=== PATIENT | male | born 1965 | race Caucasian/White ===

== ENCOUNTER 2017-07-28 20:59 | Emergency (ER) | payer OTHER ==
[~2017-07-28] VITALS: Ht 193 cm; Wt 158.4 kg
[2017-07-28 21:27] LABS: HEMATOCRIT 46.4 % (38.0-50.0); MCH 29.1 PG (29.0-34.0); MCHC 34.5 G/DL (30.0-36.0); MCV 84.5 FL (86-99); PLATELET COUNT 298 K/uL (156-360); RBC DIS.WIDTH-CV 11.9 % (11.8-14.6); RBC DIS.WIDTH-SD 36.4 % (39-53); RED BLOOD COUNT 5.49 M/uL (4.00-5.50); WHITE BLOOD COUNT 16.5 K/uL (4.1-10.2)
[2017-07-28 21:35] LABS: ALBUMIN 4.4 g/dL (3.2-4.8); CHLORIDE 102 mEq/L (99-109); POTASSIUM 4.3 mEq/L (3.7-5.4); SODIUM 138 mEq/L (136-147)
[2017-07-28 21:37] LABS: GLUCOSE 199 mg/dL (70-99)
[2017-07-28 21:38] LABS: TOTAL PROTEIN 7.5 g/dL (6.4-8.3)
[2017-07-28 21:41] LABS: ALKALINE PHOSPHATASE 113 IU/L (3-129); CREATININE 1.1 mg/dL (0.6-1.3)
[2017-07-28 21:42] LABS: UREA NITROGEN (BUN) 18 mg/dL (9-23)
[2017-07-28 21:43] LABS: AST (GOT) 46 IU/L (2-34)
[2017-07-28 21:44] LABS: ALT (GPT) 48 IU/L (3-49)
[2017-07-28 21:52] LABS: GFR ESTIMATE (CALCULATED) > 59 mL/min/ (58.99-99999)
[2017-07-28 22:39] LABS: INTER. NORMALIZED RATIO 1.1
[2017-07-28 22:42] LABS: PTT 28.8 SEC (25-37)
[2017-07-28 22:43] LABS: MAGNESIUM 1.7 mg/dL (1.3-2.7)
[2017-07-28 22:48] LABS: PHOSPHORUS 3.2 mg/dL (2.5-4.9)
[2017-07-28 22:51] LABS: LIPASE 13 U/L (1.0-51.0)
[2017-07-28 22:57] LABS: TROP-I INTERPRETATION NEGATIVE; TROPONIN-I < 0.01 ng/mL (0.0-0.30)
[2017-07-28 23:59] LABS: CREATINE KINASE 77 IU/L (1-294)
[2017-07-29 00:50] LABS: APPEARANCE CLEAR ((CLEAR)); BILIRUBIN NEGATIVE; BLOOD SMALL; COLOR YELLOW ((YELLOW)); GLUCOSE (STRIP) NEGATIVE; KETONES NEGATIVE; LEUKOCYTES NEGATIVE; NITRITE NEGATIVE; PROTEIN (STRIP) NEGATIVE; UROBILINOGEN 0.2 MG/DL (0.2-1.0)
[2017-07-29 00:54] LABS: SPECIFIC GRAVITY > 1.060 (1.000-1.030)
[2017-07-29 00:55] LABS: BACTERIA NONE SEEN /HPF; EPITHELIAL CELLS NONE SEEN /HPF; MUCUS TRACE /LPF; RED BLOOD CELLS 0-5 /HPF (0-5); UCUL ADDED? NO; WHITE BLOOD CELLS NONE SEEN /HPF (0-5)
[2017-07-29] MEDS ORDERED: GLUCOPHAGE500 MG PO (01:07)
[2017-07-29] MEDS ORDERED: OMEPRAZOLE40 M1 PO (01:07)
[2017-07-29] MEDS ORDERED: AMLODIPINE BESYL5 MG PO (01:07)
[2017-07-29] MEDS ORDERED: ATORVASTATIN CA20 MG PO (01:08)
[2017-07-29] MEDS ORDERED: CLARITIN,ALAVAR10 MG PO (01:08)
[2017-07-29 04:15] LABS: HEMATOCRIT 41.2 % (38.0-50.0); HEMOGLOBIN 14.1 G/DL (12.5-16.6); MCH 29.4 PG (29.0-34.0); MCHC 34.2 G/DL (30.0-36.0); PLATELET COUNT 216 K/uL (156-360); RED BLOOD COUNT 4.79 M/uL (4.00-5.50); WHITE BLOOD COUNT 12.4 K/uL (4.1-10.2)
[2017-07-29 04:25] LABS: CHLORIDE 103 mEq/L (99-109); SODIUM 137 mEq/L (136-147)
[2017-07-29 04:26] LABS: GLUCOSE 196 mg/dL (70-99)
[2017-07-29 04:30] LABS: GFR ESTIMATE (CALCULATED) > 59 mL/min/ (58.99-99999)
[2017-07-29 04:31] LABS: UREA NITROGEN (BUN) 16 mg/dL (9-23)
[2017-07-29] MEDS ORDERED: ZOFRAN4 MG PO (04:59)
[2017-07-29] MEDS ORDERED: FLAGYL500 MG PO (04:59)
[2017-07-29] MEDS ORDERED: CIPRO500 MG PO (04:59)
[2017-07-29 05:34] VITALS: BP 130/73
== END 2017-07-29 05:35 | disposition left against medical advice (07) ==
LOC: EME 20:59
PROVIDERS: Emergency Medicine
DX: R11.2 Nausea with vomiting, unspecified (principal); E87.2 Acidosis; R65.10 Systemic inflammatory response syndrome (SIRS) of non-infectious origin without acute organ dysfunction; K29.00 Acute gastritis without bleeding; E86.0 Dehydration; I71.2 Thoracic aortic aneurysm, without rupture; K52.9 Noninfective gastroenteritis and colitis, unspecified; E11.65 Type 2 diabetes mellitus with hyperglycemia; R00.0 Tachycardia, unspecified; R06.02 Shortness of breath; R05 Cough; K76.0 Fatty (change of) liver, not elsewhere classified; I10 Essential (primary) hypertension; E78.5 Hyperlipidemia, unspecified; Z79.84 Long term (current) use of oral hypoglycemic drugs; Z88.0 Allergy status to penicillin
CPT/HCPCS: 71045; 71275; 74177; 80048; 80053; 81003; 82550; 83605; 83690; 83735; 83880; 84100; 84484; 85027; 85610; 85730; 87040; 93005; 94640; 99281; 99285; J0744; J7030; S0030